=== PATIENT | female | born 1955 | race Caucasian/White ===

== ENCOUNTER 2020-08-22 09:59 | Emergency (ER) | payer BC, SELFPAY ==
--- NOTE | ~2020-08-22 | XR_ITS ---
EXAMINATION: XR chest 1V portable EXAM DATE: 08/22/2020 10:30 INDICATION: Cough, sweating. Upset stomach. TECHNIQUE: Portable AP frontal chest x-ray was obtained. There is no prior study for comparison. FINDINGS: Minimal right basilar linear atelectasis. The lungs are otherwise clear. There are no pleu ral effusions. Cardiac silhouette is prominent but magnified on this AP technique. There is no pne umothorax suspected. The bones and soft tissues are unremarkable. IMPRESSION: No acute cardiopulmonary findings. Reviewed, dictated and finalized at location A. [employer]
[2020-08-22 10:03] VITALS: BP 155/69; PULSE 92; RESP 20; TEMP 36.1; O2SAT 97
--- NOTE | 2020-08-22 10:26 | ED.GENADULT ---
HPI - General Adult General Chief complaint: Unspecified <Bertha Henriquez PA-C - Last Filed: 08/22/20 10:48> Stated complaint: woke up sweating, worried about covid <MARLENE Mcneal Last Filed: 08/22/20 10:48> Time Seen by Provider: 08/22/20 10:08 <MARLENE Mcneal Last Filed: 08/22/20 10:48> Source: patient <MARLENE Mcneal Last Filed: 08/22/20 10:48> Mode of arrival: ambulatory <MARLENE Mcneal Last Filed: 08/22/20 10:48> Limitations: no limitations <MARLENE Mcneal Last Filed: 08/22/20 10:48> History of Present Illness HPI narrative: Patient presents with history of hypertension and stenting presents with chief complaint having sweats when she awoke this morning. Patient states that she usually does not sweat in the mornings, therefore she was concerned she may have a fever, but she did not take her temperature. Patient states she has had some mild occasional coughing with slightly yellow sputum, but that is normal for her as she is a smoker and she states she generally has coughing with slight phlegm with seasonal changes. Patient denies documented fever, nausea, vomiting, diarrhea, shortness of breath, chest pain, dizziness, weakness, abdominal pain or any other symptoms. Patient denies taking any home medications. Patient states she is comfortable at this time. <Bertha Henriquez PA-C - Last Filed: 08/22/20 10:48> Related Data Home medications: Home Medications Medication Instructions Recorded Confirmed No Home Medications 08/22/20 08/22/20 <MARLENE Mcneal Last Filed: 08/22/20 10:48> Allergies/adverse reactions: Allergies Allergy/AdvReac Type Severity Reaction Status Date / Time No Known Allergies Allergy Unverified 08/22/20 10:08 <MARLENE Mcneal Last Filed: 08/22/20 10:48> Review of Systems Review of Systems: Narrative: CONSTITUTIONAL: Reports sweats. Denies fever, chills EYES: Denies visual changes, redness, or discharge. ENT: Denies rhinorrhea, congestion, sore throat, or otalgia. CARDIOVASCULAR: Denies chest pain, palpitations, or edema. RESPIRATORY: Reports occasional productive cough denies dyspnea. GASTROINTESTINAL: Denies abdominal pain, nausea, vomiting, or diarrhea. GENITOURINARY: Denies dysuria or hematuria. SKIN: Denies rash or itching. MUSCULOSKELETAL: Denies back pain, joint pain, or myalgia. NEUROLOGIC: Denies headache, numbness, dizziness, or weakness. PSYCHIATRIC: Denies anxiety or depression. <Bertha Henriquez PA-C - Last Filed: 08/22/20 10:48> [facility] Social History Social History: Social History Gender identity (if verbalized by the patient): Female <Berhta Henriquez PA-C - Last Filed: 08/22/20 10:48> Exam Narrative: Exam Narrative: GENERAL: Well-appearing, well-nourished, and in no acute distress.Patient is not diaphoretic. Smiling during exam, no present discomfort. HEAD: Normocephalic, atraumatic. EYES: PERRLA and EOMI. NECK: Supple. No adenopathy or masses. CHEST: Clear to auscultation. No respiratory distress. No wheezes rales or rhonchi. No tachypnea. Speaking without difficulty. No coughing during exam. HEART: Regular rate and rhythm. EXTREMITIES: Normal range of motion. No edema. SKIN: Warm, dry, no rash. NEURO: No focal deficits. Alert and oriented x3. PSYCH: Normal mood and affect. <Bertha Henriquez PA-C - Last Filed: 08/22/20 10:48> Course Vital Signs Vital signs: Vital Signs Temperature 97.0 F L 08/22/20 10:03 Pulse Rate 92 08/22/20 10:03 Respiratory Rate 20 08/22/20 10:03 Blood Pressure 155/69 H 08/22/20 10:03 Pulse Oximetry 97 08/22/20 10:03 Temperature 97.0 F L 08/22/20 10:03 Pulse Rate 92 08/22/20 10:03 Respiratory Rate 20 08/22/20 10:03 Blood Pressure 155/69 H 08/22/20 10:03 Pulse Oximetry 97 08/22/20 10:03 <Bertha Henriquez PA-C - Last Filed: 08/22/20 10:48> Vital Signs Temperature 97
[2020-08-22 19:47] LABS: SARS-CoV-2 RNA PCR Negative
== END 2020-08-22 11:03 | disposition home or self-care (01) ==
PROVIDERS: Physician Assistant; Emergency Provider General Practice; PCP Family Medicine
DX: R61 Generalized hyperhidrosis (principal); R05 Cough; F17.210 Nicotine dependence, cigarettes, uncomplicated; Z20.822 Contact with and (suspected) exposure to COVID-19; I10 Essential (primary) hypertension; Z95.5 Presence of coronary angioplasty implant and graft
CPT/HCPCS: 71045; 99283; C9803; U0003; U0005

== ENCOUNTER 2021-01-27 10:53 | Emergency (ER) | payer BC, SELFPAY ==
--- NOTE | 2021-01-27 10:57 | ED.SKABFB ---
HPI - Skin/Abscess/Foreign Bdy General Chief complaint: Skin/Abscess/Foreign Body Stated complaint: rash Time Seen by Provider: 01/27/21 11:16 Source: patient and RN notes reviewed Mode of arrival: ambulatory Limitations: no limitations History of Present Illness HPI narrative: 65-year-old female presents with concern for rash that has lasted 2 months. Reports the rash is very itchy, she has areas on both arms and legs, has began itching on her toes and fingers. She denies any trouble breathing, swollen lips, swollen tongue. She denies any relieving factors. Reports rash is itchy at night. She denies intervention. MD complaint: rash Related Data Allergies Allergy/AdvReac Type Severity Reaction Status Date / Time No Known Allergies Allergy Unverified 08/22/20 10:08 Review of Systems Review of Systems: CONSTITUTIONAL: Denies malaise, chills, sweats, or fever. EYES: Denies visual changes, redness, or discharge. ENT: Denies swollen lips, swollen tongue CARDIOVASCULAR: Denies chest pain, palpitations, or edema. RESPIRATORY: Denies cough or dyspnea. SKIN: Reports generalized itchy rash All systems reviewed & are unremarkable except as noted in HPI and below PMFSH Social History Social History Gender identity (if verbalized by the patient): Female Comments At time of signature, agree with nursing past medical, surgical, social and family history. There is no relevant family history pertinent to the presenting complaint Exam Narrative: GENERAL: Well-appearing, well-nourished, and in no acute distress. HEAD: Normocephalic, atraumatic. EYES: PERRLA, conjunctivae clear ENT: Mucous membranes moist. Oropharynx without edema, erythema or lesions. NECK: Supple. No lymphadenopathy CHEST: Clear to auscultation. No respiratory distress. HEART: Regular rate and rhythm. SKIN: Warm, dry. Papular rash noted to bilateral arms and legs with some tracking, scabbing. 2 large scabs on bilateral anterior lower legs NEURO: Alert and oriented x3. PSYCH: Normal mood and affect Course Course Emergency Course: Patient is aware of diagnosis, understands and agrees to treatment plan. Anticipatory guidance given. Patient agrees to follow-up as directed and is aware of reasons to seek care at the emergency department. Portions of this record may have been created with voice recognition software Vital Signs Vital signs: Reviewed. MDM - Skin/Abscess/Foreign Bdy MDM Narrative Medical decision making narrative: Does not appear at this time to be erythema multiforme, bullous, SJS, TEN; no evidence at this time to suggest RMSF, endocarditis or Lyme disease; patient looks well, nontoxic and is tolerating oral intake; no neurologic signs or symptoms; no headache, photophobia or neck pain; afebrile; appropriate for initial outpatient treatment; discussed the importance of follow-up, patient agrees; question, viral exanthema, contact dermatitis, allergic dermatitis, eczema, urticaria, scabies. No soft palate or uvula edema, no tongue, lip edema or other mucosal involvement, no respiratory compromise, no stridor, no wheezing, no wheezing, no history of syncope, no hypotension, no nausea, vomiting, or diarrhea. Instructed patient to go to nearest ER immediately for any worsening symptoms including but not limited to: fever, spreading rash, pain, sore throat, headache, dizziness, chest pain, trouble breathing, or any symptoms concerning to the patient. Critical Care Time Critical Care Time Critical Care Time: No Discharge Plan Discharge Clinical Impression: Scabies Patient Disposition: Home, Self-Care Condition: Stable Instructions: Scabies (ED) Additional Instructions: Use permethrin cream as prescribed. Apply the cream from head to toe before you go to bed, including between your toes and fingers, on your fingernails. The cream needs found for a minimum of 8 hours. You can wash off in the morning. You need to wash all of your sheet
[2021-01-27 11:04] VITALS: BP 148/91; PULSE 92; RESP 16; TEMP 36.5; O2SAT 97
== END 2021-01-27 11:30 | disposition home or self-care (01) ==
PROVIDERS: Emergency Provider Nurse Practitioner
DX: B86 Scabies (principal); E78.00 Pure hypercholesterolemia, unspecified; J44.9 Chronic obstructive pulmonary disease, unspecified; I10 Essential (primary) hypertension; I25.10 Atherosclerotic heart disease of native coronary artery without angina pectoris; Z95.5 Presence of coronary angioplasty implant and graft
CPT/HCPCS: 99213; G0463

== ENCOUNTER 2021-02-10 14:29 | Emergency (ER) | payer BC, SELFPAY ==
[2021-02-10 14:36] VITALS: BP 149/85; PULSE 93; RESP 18; TEMP 36.4; O2SAT 97
--- NOTE | 2021-02-10 14:57 | ED.GENADULT ---
HPI - General Adult General Chief complaint: Extremity Problem,Nontraumatic Stated complaint: pain in lower buttock Time Seen by Provider: 02/10/21 14:58 Source: patient and RN notes reviewed Mode of arrival: ambulatory Limitations: no limitations History of Present Illness HPI narrative: 65-year-old female presents with concern for left low back/buttock pain that radiates to the left thigh for several weeks. Reports history of similar back pain. Denies loss of bowel or bladder function, perianal anesthesia, fever, weakness in any extremity, abdominal pain, midline spine tenderness, injury or trauma. Denies intervention. MD complaint: Back pain Related Data Allergies Allergy/AdvReac Type Severity Reaction Status Date / Time cyclobenzaprine AdvReac Cramping Verified 02/10/21 14:54 of the Muscles Review of Systems Review of Systems: CONSTITUTIONAL: Denies malaise, chills, sweats, or fever. CARDIOVASCULAR: Denies chest pain, palpitations, or edema. RESPIRATORY: Denies cough or dyspnea. GASTROINTESTINAL: Denies abdominal pain, nausea, vomiting, diarrhea GENITOURINARY: Denies dysuria or hematuria. SKIN: Denies bruising, redness MUSCULOSKELETAL: Reports left low back/buttock pain that radiates to the left thigh. Denies joint pain or myalgia. NEUROLOGIC: Denies numbness, weakness, or headache. PSYCHIATRIC: Denies anxiety or depression. All systems reviewed & are unremarkable except as noted in HPI and below PMFSH Social History Social History Gender identity (if verbalized by the patient): Female Comments At time of signature, agree with nursing past medical, surgical, social and family history. There is no relevant family history pertinent to the presenting complaint Exam Narrative: GENERAL: Well-appearing, well-nourished, and in no acute distress. HEAD: Normocephalic, atraumatic. EYES: PERRLA and EOMI. NECK: Supple. No lymphadenopathy. CHEST: Clear to auscultation. No respiratory distress. HEART: Regular rate and rhythm. Distal pulses palpable and equal, cap refill <3 seconds ABDOMEN: Soft, nontender, nondistended, normal active bowel sounds, no palpable or pulsatile masses. No CVA tenderness MUSCULOSKELETAL: Normal range of motion and strength in all extremities; 5/5 strength with hip flexion and extension, dorsiflexion and extension, knee flexion and extension, plantar flexion and extension. Normal sensation in dermatomal distributions with sensitivity to light touch and pain. No midline back tenderness to palpation. No paraspinal tenderness. Transfers from lying to sitting to standing. SKIN: Warm, dry, no rash. No ecchymosis, erythema, open wounds to back. NEURO: No focal deficits. Alert and oriented x3. Reflexes intact. Normal gait. PSYCH: Normal mood and affect Course Course Emergency Course: Patient is aware of diagnosis, understands and agrees to treatment plan. Anticipatory guidance given. Patient agrees to follow-up as directed and is aware of reasons to seek care at the emergency department. Portions of this record may have been created with voice recognition software Vital Signs Vital signs: Vital Signs Temperature 97.6 F 02/10/21 14:36 Pulse Rate 93 02/10/21 14:36 Respiratory Rate 18 02/10/21 14:36 Blood Pressure 149/85 H 02/10/21 14:36 Pulse Oximetry 97 02/10/21 14:36 Temperature 97.6 F 02/10/21 14:36 Pulse Rate 93 02/10/21 14:36 Respiratory Rate 18 02/10/21 14:36 Blood Pressure 149/85 H 02/10/21 14:36 Pulse Oximetry 97 02/10/21 14:36 Reviewed. Patient has been instructed to follow up with her primary care provider within the next week regarding her elevated blood pressure today. Medical Decision Making MDM Narrative Medical decision making narrative: No risk factors or findings concerning for epidural abscess, diskitis, vertebral osteomyelitis, cord compression, cauda equina, vertebral fracture or bone malignancy, AAA, or pyelonephritis. Patient instructed t
== END 2021-02-10 15:09 | disposition home or self-care (01) ==
PROVIDERS: Emergency Provider Nurse Practitioner
DX: M54.5 Low back pain (principal); I25.10 Atherosclerotic heart disease of native coronary artery without angina pectoris; Z95.5 Presence of coronary angioplasty implant and graft
CPT/HCPCS: 99213; G0463